=== PATIENT | male | born 1965 | race Caucasian/White ===

== ENCOUNTER 2018-08-17 07:11 | Day surgery (SDC) | payer OTHER ==
[~2018-08-17] VITALS: Ht 182.9 cm; Wt 77.6 kg
[2018-08-17] MEDS ORDERED: LIDOCAINE 2% 100 MG/5 ML UJET TP ONE (08:10)
[2018-08-17] MEDS ORDERED: MIDAZOLAM 2 MG/2 ML VIAL ONE ×2 (08:10→08:29)
[2018-08-17] MEDS ORDERED: fentaNYL 0.05 MG/ML VIAL ONE (08:10)
[2018-08-17] MEDS ORDERED: MIDAZOLAM 2 MG/2 ML VIAL IVP ONE (09:50)
[2018-08-17] MEDS ORDERED: fentaNYL 0.05 MG/ML VIAL IVP ONE (09:50)
[2018-08-17] MEDS ORDERED: fentaNYL 0.05 MG/ML VIAL IVP SCH (10:04)
[2018-08-17] MEDS ORDERED: MIDAZOLAM 2 MG/2 ML VIAL IVP SCH (10:04)
== END 2018-08-17 09:55 | disposition home or self-care (01) ==
LOC: MDS 07:11 → MMU 07:16 → MDS 09:55
PROVIDERS: ATTEND Internal Medicine Gastroenterology
DX: Z12.11 Encounter for screening for malignant neoplasm of colon (principal); K63.89 Other specified diseases of intestine; E11.9 Type 2 diabetes mellitus without complications; F32.9 Major depressive disorder, single episode, unspecified; Z93.2 Ileostomy status; Z79.899 Other long term (current) drug therapy; Z98.890 Other specified postprocedural states; Z90.49 Acquired absence of other specified parts of digestive tract
CPT/HCPCS: G0121; J2250; J3010